=== PATIENT | female | born 1985 | race Caucasian/White ===

== ENCOUNTER 2020-11-29 19:52 | Emergency (ER) | payer OTHER, SELFPAY ==
[2020-11-29 20:41] VITALS: BP 117/62; PULSE 75; RESP 18; TEMP 36.4; O2SAT 99; BMI 43.0
[2020-11-29 22:00] VITALS: BP 117/62; PULSE 75; RESP 18; TEMP 36.4; O2SAT 99
[2020-11-29 22:17] LABS: MANUAL DIFF FLAG NO
[2020-11-29 22:19] LABS: Basophils Percent Auto 0.3 % (0-2); Eosinophils Absolute Auto 0.1 X10*3/uL (0.0-0.4); Eosinophils Percent Auto 1.5 % (0-4); Hemoglobin 10.4 g/dl (12.0-16.0); Imm Gran Abs Auto 0.04 X10*3/uL (0.00-0.03); Imm Gran Pct Auto 0.4 % (0.0-0.4); Lymphocytes Absolute Auto 3.3 X10*3/uL (1.2-4.9); Lymphocytes Percent Auto 37.5 % (20-40); Mean Corpuscular HGB Conc 31.5 g/dl (31.0-35.0); Mean Corpuscular Hemoglobin 27.3 pg (27.0-33.0); Mean Corpuscular Volume 86.6 fL (80-98); Mean Platelet Volume 10.3 fL (9.4-12.3); Monocytes Absolute Auto 0.3 X10*3/uL (0.1-1.2); Monocytes Percent Auto 3.5 % (2-11); Neutrophils Absolute Auto 5.1 X10*3/uL (2.0-8.3); Neutrophils Percent Auto 56.8 % (45-73); Platelet Count 224 X10*3/uL (160-400); Red Blood Count 3.81 X10*6/uL (4.20-5.50); Red Cell Distribution Width 13.6 % (11.0-16.0); White Blood Count 8.9 X10*3/uL (4.8-10.8)
[2020-11-29 22:35] LABS: Glucose Urine UA NEG (NEG); Leukocyte Esterase Urine NEG (NEG); Nitrite Urine NEG (NEG); Specific Gravity - Urine 1.025 (1.005-1.025); UACC Culture Trigger NO; Urine Blood 3+ (NEG); Urine Ketones 15 MG/DL (NEG); Urine Protein TRACE MG/DL (NEG-TRACE)
[2020-11-29 22:42] LABS: Alanine Aminotransferase 79 U/L (0-31); Albumin Level 3.8 g/dL (3.5-5.0); Alkaline Phosphatase 63 U/L (39-117); Anion Gap 13 (12-20); Appearance Urine CLEAR; Aspartate Amino Transferase 46 U/L (5-31); Bilirubin Total 0.4 mg/dL (0.0-1.0); Blood Urea Nitrogen 14 mg/dL (9-16); Calcium 8.5 mg/dL (8.4-10.2); Carbon Dioxide 25 mmol/L (22-29); Chloride 103 mmol/L (96-108); Color Urine YELLOW; Creatinine Clr Calc Pharmacy 106.1; Estimated Glomerular Filt Rate > 60; Glucose Random 178 mg/dL (60-115); Potassium 4.3 mmol/L (3.3-5.1); Sodium 137 mmol/L (135-145); Total Protein 6.7 g/dL (6.5-8.0)
[2020-11-29 22:57] LABS: RBC Urine 0-2 /HPF (0); Squamous Epithelial Cell Urine TRACE /LPF; WBC Urine 0-2 /HPF (0-4)
[2020-11-29 23:11] LABS: UPreg QC Valid YES; Urine Pregnancy NEGATIVE (NEGATIVE)
[2020-11-29 23:37] VITALS: BP 118/65; PULSE 77; RESP 18; TEMP 36.7; O2SAT 99
--- NOTE | 2020-11-30 00:21 | ED.GENADULT ---
HPI - General Adult General Chief complaint: Vaginal Bleeding Stated complaint: abd pain Time Seen by Provider: 11/29/20 21:10 Source: patient Mode of arrival: ambulatory Limitations: language barrier (Patient's 1st language is Sinhala, food and beverage outlets manager was used) History of Present Illness HPI narrative: 35-year-old female who presents emergency department for evaluation of abdominal pain and vaginal bleeding. The patient states that her menstrual periods are normally irregular. She states that over the past 3 months she has been spotting and bleeding every day. She states that her last menstrual periods was 1 month prior and she did not have any bleeding until 4 days prior to evaluation when she developed severe menstrual bleeding. She states that she has been soaking through a tampon and a pad every hour. Is also complaining of intermittent, severe, throbbing suprapubic abdominal pain. She states the pain got worse over the last 24 hours and is currently 10/10. She states she felt lightheaded and dizzy 2-3 times but had no a episodes of losing consciousness. She denied fever, chills, chest pain, shortness of breath the patient is a [id number] 1 twin . She states she has had 2 C sections in the past. She has also had a bilateral tubal ligation. Related Data Allergies Allergy/AdvReac Type Severity Reaction Status Date / Time No Known Allergies Allergy Verified 11/29/20 20:52 Review of Systems Review of Systems: Yes all other systems are reviewed and are negative [facility] Past Medical History [facility] Narrative: Past medical history: None. Surgical history: Patient has had a cholecystectomy, bilateral tubal ligation and C-sections x2. Social history: She denies tobacco use. She states she drinks alcohol only on occasions. She denies drug use. Medical History (Updated 11/29/20 @ 20:49 by Eliz Mcnair) No acute medical problems Surgical History (Updated 11/29/20 @ 20:49 by Eliz Mcnair) Tubal ligation status Social History Social History Alcohol intake: unknown Patient Tobacco Use Status: Tobacco use Unknown Use of substances other than those prescribed or required for medical reasons: Unknown Advance Directives: No Advance Directives Information Provided: Yes Patient : No Physical Exam Vital Signs: Vital Signs: Last Vital Signs Temp 98.1 F 11/29/20 23:37 Pulse 77 11/29/20 23:37 Resp 18 11/29/20 23:37 BP 118/65 11/29/20 23:37 Pulse Ox 99 11/29/20 23:37 Body Mass Index 43.0 Const: General: cooperative and no acute distress Nutritional Appearance: obese Orientation/consciousness: oriented to person and oriented to place Limitations: no limitations HENMT: Head: Yes normal to inspection, Yes normocephalic and Yes atraumatic Ears: external ears normal General nose exam: Normal external nose present Face and sinus: Yes normal facial exam Mouth: Normal oral and palatal mucosa present Throat: Yes posterior oropharynx normal Eyes: General: appearance normal, both eyes and all related structures Pupils: Equal, round and reactive pupils present Neck: Neck: Yes normal visual inspection, Yes no lymphadenopathy, Yes trachea midline and Yes supple Chest: Chest palpation & inspection: normal inspection of the chest and normal palpation of entire chest wall Resp: Effort & Inspection: normal respiratory effort and able to speak in complete sentences Auscultation: clear to auscultation bilaterally Cardio: Rate: regular rate Rhythm: regular rhythm Heart sounds: S1 normal heart sound present, S2 normal heart sound present and no murmurs GI: Inspection: Yes normal to inspection Palpation (GI): Soft to palpation, Tenderness to palpation present (GI) suprapubicly (Moderate) and no guarding Auscultation: normal bowel sounds : General: Yes no CVA tenderness Back/Spine/Pelvis: Back: no CVA tenderness Skin: General skin exam: no rashes or lesions noted Neuro: General: oriented to person and oriented to place Cranial nerves: Yes CN's II-XII intact bilaterally and Yes Equal, round and reactive pupils present Cognition (Neuro): normal cognition Motor exam (neuro): 5/5 motor strength present throughout Extrem: General: Yes normal to inspection Psych: Appearance: grossly normal Speech and movement: Normal speech and movement present Affect: normal affect Attitude: cooperative Thought process: Normal thought process present Thought content: Normal thought content present Course Course Course Narrative: 35-year-old female who presents emergency department for evaluation of suprapubic abdominal pain and menstrual bleeding x4 days. The patient's menstrual periods are usually irregular, her last normal menstrual period 1 month prior, prior lab she had spotting and bleeding daily for 3 months. Vital signs were normal. Physical examination did reveal suprapubic tenderness otherwise was unremarkable. Laboratory evaluation revealed a normal septic anemia with an H&H of 10.4 and 33.0. CMP revealed an elevated glucose of 178 and an elevated AST and ALT of 46 and 79. Urinalysis revealed 3+ blood, microscopic revealed 0-2 rbc's, 0 2 WBCs and no bacteria. The patient's presentation is consistent with menorrhagia, she was treated with Toradol 30 mg IV, morphine 4 mg IV and Zofran 4 mg IV. She also ordered to get normal saline x1 L. The patient will be treated with Provera 10 mg once a day for 10 days. She was advised to take Tylenol and ibuprofen for pain. She will be referred to our on-call greensman for her of the evaluation. Medical Decision Making Lab Data Result diagrams: 11/29/20 22:09 11/29/20 22:09 Labs: Lab Results 11/29/20 11/29/20 11/29/20 Range/Units 22:09 22:09 22:09 WBC 8.9 (4.8-10.8) X10*3/uL RBC 3.81 L (4.20-5.50) X10*6/uL Hgb 10.4 L (12.0-16.0) g/dl Hct 33.0 L (37-47) % MCV 86.6 (80-98) fL MCH 27.3 (27.0-33.0) pg MCHC 31.5 (31.0-35.0) g/dl RDW 13.6 (11.0-16.0) % Plt Count 224 (160-400) X10*3/uL MPV 10.3 (9.4-12.3) fL Immature Gran % (Auto) 0.4 (0.0-0.4) % Neut % (Auto) 56.8 (45-73) % Lymph % (Auto) 37.5 (20-40) % Crook % (Auto) 3.5 (2-11) % Eos % (Auto) 1.5 (0-4) % Baso % (Auto) 0.3 (0-2) % Lymph # (Auto) 3.3 (1.2-4.9) X10*3/uL Crook # (Auto) 0.3 (0.1-1.2) X10*3/uL Eos # (Auto) 0.1 (0.0-0.4) X10*3/uL Baso # (Auto) 0.0 (0.0-0.2) X10*3/uL Abs Immat Gran (auto) 0.04 H (0.00-0.03) X10*3/uL Absolute Neuts (auto) 5.1 (2.0-8.3) X10*3/uL Absolute Nucleated RBC 0.000 (0.0-0.012) X10*3/uL Nucleated RBC % (auto) 0.0 (0.0-0.2) /100WBC Sodium 137 (135-145) mmol/L Potassium 4.3 (3.3-5.1) mmol/L Chloride 103 (96-108) mmol/L Carbon Dioxide 25 (22-29) mmol/L Anion Gap 13 (12-20) BUN 14 (9-16) mg/dL Creatinine 0.80 (0.5-1.4) mg/dL Estim Creat Clear Calc 106.1 Estimated GFR > 60 Random Glucose 178 H (60-115) mg/dL Calcium 8.5 (8.4-10.2) mg/dL Total Bilirubin 0.4 (0.0-1.0) mg/dL AST 46 H (5-31) U/L ALT 79 H (0-31) U/L Alkaline Phosphatase 63 (39-117) U/L Total Protein 6.7 (6.5-8.0) g/dL Albumin 3.8 (3.5-5.0) g/dL Urine Color YELLOW Urine Appearance CLEAR Urine pH 6.0 (5.0-8.0) Ur Specific [place] 1.025 (1.005-1.025) Urine Protein TRACE (NEG-TRACE) MG/DL Urine Glucose (UA) NEG (NEG) MG/DL Urine Ketones 15 (NEG) MG/DL Urine Blood 3+ H (NEG) Urine Nitrite NEG (NEG) Ur Leukocyte Esterase NEG (NEG) Urine RBC 0-2 (0) /HPF Urine WBC 0-2 (0-4) /HPF Ur Squamous Epith Cells TRACE /LPF Urine Bacteria NONE /LPF Urine Test (NEGATIVE) 11/29/20 Range/Units 22:09 WBC (4.8-10.8) X10*3/uL RBC (4.20-5.50) X10*6/uL Hgb (12.0-16.0) g/dl Hct (37-47) % MCV (80-98) fL MCH (27.0-33.0) pg MCHC (31.0-35.0) g/dl RDW (11.0-16.0) % Plt Count (160-400) X10*3/uL MPV (9.4-12.3) fL Immature Gran % (Auto) (0.0-0.4) % Neut % (Auto) (45-73) % Lymph % (Auto) (20-40) % Crook % (Auto) (2-11) % Eos % (Auto) (0-4) % Baso % (Auto) (0-2) % Lymph # (Auto) (1.2-4.9) X10*3/uL Crook # (Auto) (0.1-1.2) X10*3/uL Eos # (Auto) (0.0-0.4) X10*3/uL Baso # (Auto) (0.0-0.2) X10*3/uL Abs Immat Gran (auto) (0.00-0.03) X10*3/uL Absolute Neuts (auto) (2.0-8.3) X10*3/uL Absolute Nucleated RBC (0.0-0.012) X10*3/uL Nucleated RBC % (auto) (0.0-0.2) /100WBC Sodium (135-145) mmol/L Potassium (3.3-5.1) mmol/L Chloride (96-108) mmol/L Carbon Dioxide (22-29) mmol/L Anion Gap (12-20) BUN (9-16) mg/dL Creatinine (0.5-1.4) mg/dL Estim Creat Clear Calc Estimated GFR Random Glucose (60-115) mg/dL Calcium (8.4-10.2) mg/dL Total Bilirubin (0.0-1.0) mg/dL AST (5-31) U/L ALT (0-31) U/L Alkaline Phosphatase (39-117) U/L Total Protein (6.5-8.0) g/dL Albumin (3.5-5.0) g/dL Urine Color Urine Appearance Urine pH (5.0-8.0) Ur Specific [place] (1.005-1.025) Urine Protein (NEG-TRACE) MG/DL Urine Glucose (UA) (NEG) MG/DL Urine Ketones (NEG) MG/DL Urine Blood (NEG) Urine Nitrite (NEG) Ur Leukocyte Esterase (NEG) Urine RBC (0) /HPF Urine WBC (0-4) /HPF Ur Squamous Epith Cells /LPF Urine Bacteria /LPF Urine Test NEGATIVE (NEGATIVE)
[2020-11-30 00:38] VITALS: RESP 15
[2020-11-30] MEDS: Morphine Sulfate 4 MG/ML CARTRIDGE IVPUSH ×2 (00:38→01:29)
[2020-11-30] MEDS: Ketorolac Tromethamine 15 MG/ML VIAL 30 MG IVPUSH (00:38)
[2020-11-30] MEDS: 0.9 % Sodium Chloride 1,000 ML 999 ML IV (00:39)
[2020-11-30 01:29] VITALS: RESP 15
[2020-12-04 23:16] LABS: Progesterone <0.1 ng/mL
== END 2020-11-30 02:15 | disposition home or self-care (01) ==
PROVIDERS: Student in an Organized Health Care Education/Training Program; Emergency Provider Emergency Medicine Emergency Medical Services
DX: N92.0 Excessive and frequent menstruation with regular cycle (principal); R10.9 Unspecified abdominal pain; R42 Dizziness and giddiness
CPT/HCPCS: 36415; 80053; 81001; 81025; 84144; 85025; 96365; 96375; 99285; J1885; J2270; J2405

== ENCOUNTER 2023-10-13 11:09 | Outpatient (REF) | payer MEDICAID, SELFPAY ==
[2023-10-13 13:33] LABS: Creatinine Urine 21.73 mg/dL
[2023-10-13 14:22] LABS: Alanine Aminotransferase 43 U/L (0-31); Albumin Level 4.2 g/dL (3.5-5.0); Alkaline Phosphatase 65 U/L (39-117); Anion Gap 14 (12-20); Aspartate Amino Transferase 17 U/L (5-31); Bilirubin Total 0.3 mg/dL (0.0-1.0); Blood Urea Nitrogen 10 mg/dL (9-16); Calcium 9.2 mg/dL (8.4-10.2); Carbon Dioxide 21 mmol/L (22-29); Chloride 103 mmol/L (96-108); Cholesterol 172 mg/dL (<200); Estimated Glomerular Filt Rate > 60; Glucose Random 200 mg/dL (60-115); HDL Cholesterol 41 mg/dL (>40); LDL Cholesterol Calculated 65 mg/dL (<100); Potassium 3.8 mmol/L (3.3-5.1); Sodium 134 mmol/L (135-145); Total Protein 7.8 g/dL (6.5-8.0); Triglycerides 331 mg/dL (<150)
== END 2023-10-13 11:10 | disposition home or self-care (01) ==
LOC: HO.HHCL 11:09
PROVIDERS: Visit Provider General Practice
DX: E11.65 Type 2 diabetes mellitus with hyperglycemia (principal); Z11.3 Encounter for screening for infections with a predominantly sexual mode of transmission
CPT/HCPCS: 36415; 80053; 80061; 82043; 82570

== ENCOUNTER 2025-02-12 14:30 | Outpatient (REF) | payer MEDICAID, SELFPAY ==
--- OUTSIDE RECORDS SUMMARY | 2025-02-12 16:00 | XMS_ITS | Encounter Summary ---
Author Organization [employer] Address [address] [place] [address] Care Team Providers Care Deli Cook Name Role Phone Dary Golden MD Primary Care Provider Encounter Details Date Type Department Care Team (Late st Contact Info) Description 02/12/2025 4:00 PM EDT Office Visit [facility] [address] [place] [address] Dary Golden MD [address] [place] [address] Class 2 severe obesity due to excess calories with serious comorbidity and body mass index (BMI) of 38.0 to 38.9 in adult (Primary Dx); Type 2 diabetes mellitus with hyperglycemia, without long-term current use of insulin (HCC); Recurrent major depressive disorder, in partial remission (CMS/HCC); Skin candidiasis Social History Tobacco Use Types Packs/Day Years Used Date Smoking Tobacco: Never Smokeless Tobacco: Never Alcohol Use Standard Drinks/Week Comments Not Currently 0 (1 standard drink = 0.6 oz pur e alcohol) Depression Answer Date Recorded Patient Health Questionnaire-9 Score 8 08/23/2024 Patient Health Questionnaire-9 Score 8 08/23/2024 Last PHQ-9: Questionnaire Data Not on file 0 08/23/2024 Housing Stability Answer Date Recorded What is your housing situation today? I have shady vazquez 10/03/[address] you li ve. Do you have problems with any of the following? None of the above 10/03/2023 Food Insecurity Answer Date Recorded Within the past 12 months, y ou worried that your food would run out before you got money to buy more: Never True 10/03/2023 Within the past 12 months,th e food you bought just didn't last and you didn't have enough money to get more: Never True 07/2023 Transportation Answer Date Recorded In the past 12 months, has l ack of transportation kept you from medical appts, meetings, work or from getting things needed for daily living? No 08/14/2024 Utilities Answer Date Recorded In the past 12 months, has t he electric, gas, oil or water company threatened to shut off services in your home? Yes 08/14/2024 Depression Answer Date Recorded Patient Health Questionnaire-2 Score 2 08/23/2024 Internet Access Answer Date Recorded Internet Access Q1 Yes 08/14/2024 Internet Access Q2 Not on file 08/14/2024 Comments Unknown Sex and Gender Information Value Date Recorded Sex Assigned at Female 02/28/2022 10:39 AM EDT Legal Sex Female 10:39 AM EDT Gender Identity Female 02/28/2022 10:39 AM EDT Sexual Orientation Straight 02/28/2022 10 :39 AM EDT documented as of this encounter Last Filed Vital Signs Vital Sign Reading Time Taken Comments Blood Pressure 92/60 02/12/2025 2:06 PM EDT Pulse 62 02/12/2025 2:06 PM EDT Temperature 36.4 C (97.5 F) 02/12/2025 2:06 PM EDT Respiratory Rate 20 02/12/2025 2:06 PM EDT Oxygen Saturation - - Inhaled Oxygen Concentration - - Weight 93.3 kg (205 lb 9.6 oz) 02/12/2025 2:06 P M EDT Height 154.9 cm (5' 1 ) 02/12/2025 2:06 PM EDT Body Mass Index 38.85 02/12/2025 2:06 PM EDT documented in this encounter Progress Notes * Dary Golden MD - 02/12/2025 4:00 PM EDT SUBJECTIVE: Yen Jordan is a 39 y.o. female who presents for chronic disease management. Denies recent illness, ER visit, or hospitalization. Acute Concerns: Her kids are growing up, she is happy losing weight, but also wants to treat the excess skin that she is developing. Enjoying singing in her [employer] group. Chronic Conditions and Plans: DM: taking Jardiance 25mg, and Trulicity 1.5mg weekly A1C 6.4 Glucose 248 mild microalbuminuria at 30, increased Jardiance to 25mg at last visit, will continue to monitor urine protein annually. Feet- normal Eye- no concerns Hyper TG at 330 On Simvastatin 20mg today Depression: Family issues and stressors Bilateral pelvic pain: wants to have her uterus removed OCP not helpful Advil is helpful Consider IUD, has BTL for contraception Ovarian cysts. Pain c/w these 2 diagnoses. Health Maintenance: Mammo- at age 42 Pap- 2-2021 STI screening- today Imms- due for PCV, COVID, Hep B, Flu. Declines Latest Reference Range & Units 10/13/23 11:11 Glucose 60 - 115 mg/dL 200 (H) Urea Nitrogen (BUN) 9 - 16 mg/dL 10 Creatinine, Serum 0.5 - 1.4 mg/dL 0.68 Sodium 135 - 145 mmol/L 134 (L) Potassium 3.3 - 5.1 mmol/L 3.8 Chloride 96 - 108 mmol/L 103 Carbon Dioxide 22 - 29 mmol/L 21 (L) Calcium 8.4 - 10.2 mg/dL 9.2 Albumin Level 3.5 - 5.0 g/dL 4.2 Bilirubin, Total 0.0 - 1.0 mg/dL 0.3 AST 5 - 31 U/L 17 ALT 0 - 31 U/L 43 (H) Anion Gap 12 - 20 14 Total Protein 6.5 - 8.0 g/dL 7.8 Cholesterol <200 mg/dL 172 HDL Cholesterol >40 mg/dL 41 LDL Cholesterol Calculated <100 mg/dL 65 Triglycerides <150 mg/dL 331 (H) Microalbumin Urine mg/L 30.0 Alkaline Phosphatase 39 - 117 U/L 65 Creatinine, Urine mg/dL 21.73 Estimated Glomerular Filt Rate >60 Microalbum Creatinine Ratio Ur <30 ug/mg cr 138.0 (H) Patient Active Problem List Diagnosis Date Noted Class 2 severe obesity due to excess calories with serious comorbidity and body mass index (BMI) of38.0 to 38.9 in adult 08/27/2024 Amenorrhea 09/20/2022 Elevated liver enzymes 08/15/2022 Abnormal uterine bleeding 06/19/2021 Anxiety 06/19/2021 Recurrent major depressive disorder, in partial remission (CMS/HCC) 06/19/2021 Type 2 diabetes mellitus (HCC) 06/19/2021 Surgical History[1] Social History Social History Narrative Not on file Review of Systems Constitutional: Negative. Respiratory: Negative. Cardiovascular: Negative. Gastrointestinal: Positive for nausea. Genitourinary: Negative. Musculoskeletal: Negative. OBJECTIVE: Vitals: 02/12/25 1406 BP: 92/60 BP Location: Left arm Patient Position: Sitting BP Cuff Size: Adult Pulse: 62 Resp: 20 Temp: 97.5 ??F (36.4 ??C) TempSrc: Oral Weight: 205 lb 9.6 oz (93.3 kg) Height: 5' 1 (1.549 m) Physical Exam Vitals and nursing note reviewed. Constitutional: Appearance: Normal appearance. HENT: Head: Normocephalic and atraumatic. Cardiovascular: Rate and Rhythm: Normal rate and regular rhythm. Pulses: Normal pulses. Heart sounds: Normal heart sounds. Pulmonary: Effort: Pulmonary effort is normal. Breath sounds: Normal breath sounds. Skin: General: Skin is warm and dry. Neurological: General: No focal deficit present. Mental Status: She is alert and oriented to person, place, and time. Psychiatric: Mood and Affect: Mood normal. Behavior: Behavior normal. ASSESSMENT/PLAN Problem List Items Addressed This Visit Recurrent major depressive disorder, in partial remission (CMS/HCC) Type 2 diabetes mellitus (HCC) Current Assessment & Plan Current A1c: 6.5 CONTINUE Jardiance 25mg daily, increase Trulicity to 3mg weekly BMP: normal Cr. Microalbumin: 30 Foot Exam: normal Eye Exam: needs referral Lipid panel: ASCVD: The ASCVD Risk score (Keira RODRIGUEZ, et al., 2019) failed to calculate for the following reasons: The 2019 ASCVD risk score is only valid for ages 40 to 79 Statin: Yes ASA: No SIVAKUMAR/ARB: No Encouraged regular aerobic exercise for improved glycemic control Encouraged daily foot checks Encouraged lean protein snacks and to avoid foods high in sugar and simple carbohydrates Treatment Goals: A1c goal: <7% FBG goal: <130 2 hour post prandial goal: <180 Relevant Medications Dulaglutide (Trulicity) 3 MG/0.5ML solution auto-injector Other Relevant Orders POCT Glucose (Completed) POCT Hgb A1c Lipid Panel, Standard Comprehensive Metabolic Panel Albumin, Random Urine W/Creatinine Class 2 severe obesity due to excess calories with serious comorbidity and body mass index (BMI) of38.0 to 38.9 in adult - Primary Relevant Medications Dulaglutide (Trulicity) 3 MG/0.5ML solution auto-injector Other Visit Diagnoses Skin candidiasis Relevant Medications Miconazole 2 % powder Follow Up: 6 months or sooner prn Allergies[2] Current Medications[3] Palauan Translation: Provided by [facility] staff member BRAIN Piedra [1] Past Surgical History: Procedure Laterality Date SECTION, UNSPECIFIED TUBAL LIGATION [2] No Known Allergies [3] Current Outpatient Medications: ibuprofen 800 MG tablet, , Disp: , Rfl: Alcohol Swabs ( Alcohol Prep) 70 % pads, Apply 1 Swab topically 2 times daily. Use when checking blood sugar twice a day, Disp: 100 each, Rfl: 3 Blood Glucose Monitoring Suppl (FreeStyle [place] Lite) w/Device kit, TEST BLOOD SUGAR TWICE DAILY,Disp: , Rfl: Dulaglutide (Trulicity) 3 MG/0.5ML solution auto-injector, Inject 3 mg under the skin 1 (one) time per week., Disp: 2 mL, Rfl: 2 glucose blood (FREESTYLE LITE) test strip, 1 each by Other route 3 times daily., Disp: 100 each, Rfl: 11 Jardiance 25 MG, TAKE 1 TABLET BY MOUTH EVERY DAY, Disp: 90 tablet, Rfl: 3 Miconazole 2 % powder, Apply 1 Application topically Once per day., Disp: 85 g, Rfl: 1 simvastatin (Zocor) 20 MG tablet, TAKE 1 TABLET BY MOUTH AT BEDTIME, Disp: 90 tablet, Rfl: 3 TRUEplus Lancets 33G misc, Apply 1 each topically 3 times daily., Disp: 100 each, Rfl: 3 documented in this encounter Miscellaneous Notes * Assessment & Plan Note - Dary Golden MD - 02/12/2025 3:16 PM EDTAssociated Problem(s): Type 2 diabetes mellitus (HCC) Current A1c: 6.5 CONTINUE Jardiance 25mg daily, increase Trulicity to 3mg weekly BMP: normal Cr. Microalbumin: 30 Foot Exam: normal Eye Exam: needs referral Lipid panel: ASCVD: The ASCVD Risk score (Keira RODRIGUEZ, et al., 2019) failed to calculate for the following reasons: The 2019 ASCVD risk score is only valid for ages 40 to 79 Statin: Yes ASA: No SIVAKUMAR/ARB: No Encouraged regular aerobic exercise for improved glycemic control Encouraged daily foot checks Encouraged lean protein snacks and to avoid foods high in sugar and simple carbohydrates Treatment Goals: A1c goal: <7% FBG goal: <130 2 hour post prandial goal: <180 documented in this encounter Plan of Treatment Not on file documented as of this encounter Procedures Procedure Name Priority Date/Time Associated Diagnosis Comments POCT GLYCATED HEMOGLOBIN, TOTAL Routine 02/12/2025 4:16 PM EDT Type 2 diabetes mellitus with hyperglycemia, without long-term current use of insulin (HCC) ALBUMIN, RANDOM URINE W/CREATININE Routine 02/12/2025 2:36 PM EDT Type 2 diabetes mellitus with hyperglycemia, without long-term current use of insulin (HCC) LIPID PANEL, STANDARD Routine 02/12/2025 2:36 PM EDT Type 2 diabetes mellitus with hyperglycemia, without long-term current use of insulin (HCC) COMPREHENSIVE METABOLIC PANEL Routine 02/12/2025 2:36 PM EDT Type 2 diabetes mellitus with hyperglycemia, without long-term current use of insulin (HCC) POCT GLUCOSE Routine 02/12/2025 2:09 PM EDT Type 2 diabetes mellitus with hyperglycemia, without long-term current use of insulin (HCC) documented in this encounter Results * (ABNORMAL) POCT Hgb A1c (02/12/2025 4:16 PM EDT) Hemoglobin A1C 6.4(A) 4.0 - 5.7 % QC Media Lot # [id number] Lot# Expiration Date 51 Blood 02/12/2025 4:16 PM EDT Dary Golden MD POINT OF CARE TEST ENTER/EDIT ORDERABLES Final Result * (ABNORMAL) Albumin, Random Urine W/Creatinine (02/12/2025 2:36 PM EDT) Creatinine, Urine 304.91 mg/dL [facility] Microalbumin Urine 96.0 mg/L [facility] Microalbum Creatinine Ratio Ur 31.4(H) <30 ug/mg cr [facility] Comment:Albumin/Creatinine R atio Reference Ranges: Normal: < 30 ug/mg creatinine Microalbuminuria: 30 - 300 ug/mg creatinineClinical Albuminuria: > 300 ug/mg creatinine Urine (Urine, Random) 02/12/2025 2:36 PM EDT 02/12/2025 3:55 PM EDT Dary Golden MD LAB URINE ORDERABLES Final Res ult [facility] [address] [place] [phone] * (ABNORMAL) Comprehensive Metabolic Panel (02/12/2025 2:36 PM EDT) Sodium 139 135 - 145 mmol/L [facility] Potassium 4.1 3.3 - 5.1 mmol/L [facility] Chloride 106 96 - 108 mmol/L [facility] Carbon Dioxide 27 22 - 29 mmol/L [facility] Anion Gap 10(L) 12 - 20 [facility] Urea Nitrogen (BUN) 14 9 - 16 mg/dL [facility] Creatinine, Serum 0.59 0.5 - 1.4 mg/dL [facility] Estimated Glomerular Filt Rate >60 [facility] Comment:Chronic Kidney Disea se: Estimated GFR < 60 mL/min/1.19x3Vlaokr Kidney Disease: Estimated GFR < 15 mL/min/1.73m2 Glucose 135(H) 60 - 115 mg/dL [facility] Calcium 9.1 8.4 - 10.2 mg/dL [facility] Bilirubin, Total 0.6 0.0 - 1.0 mg/dL [facility] Aspartate Amino Transferase 16 5 - 31 U/L [facility] Alanine Aminotransferase 23 0 - 31 U/L [facility] Total Protein 7.4 6.5 - 8.0 g/dL [facility] Albumin Level 4.3 3.5 - 5.0 g/dL [facility] Alkaline Phosphatase 51 39 - 117 U/L [facility] Blood Venous blood specimen / Unknown 02/12/2025 2:36 PM EDT 02/12/2025 4:05 PM EDT us Dary Golden MD LAB BLOOD ORDERABLES Final Res ult [facility] [address] [place] [phone] * (ABNORMAL) Lipid Panel, Standard (02/12/2025 2:36 PM EDT) Triglycerides 187(H) <150 mg/dL [facility] Comment:Desirable Triglyceri de: less than 150 mg/dLBorderline High Triglyceride 150-199 mg/dLHigh Triglyceride: 200-499 mg/dLVery High Triglyceride: greater than or equal to 5OO mg/dL Cholesterol 129 <200 mg/dL [facility] Comment:Desirable Cholestero l: less than 200 mg/dLBorderline High Cholesterol: 200-239 mg/dLHigh Cholesterol: greater than 239 mg/dL LDL Cholesterol Calculated 54 <100 mg/dL [facility] Comment:Desirable LDL: less than 100 mg/dLNear Optimal/Above Optimal LDL: 110- 129 mg/dLBorderline High LDL: 130-159 mg/dLHigh LDL: 160-189 mg/dLVery High LDL: greater than or equal to 190 mg/dL HDL Cholesterol 38(L) >40 mg/dL [facility] Comment:Desirable HDL: great er than 40 mg/dL Note: This HDL assay may give artificially low results in patients with liver disease. Blood Venous blood specimen / Unknown 02/12/2025 2:36 PM EDT 02/12/2025 4:05 PM EDT Dary Golden MD LAB BLOOD ORDERABLES Final Res ult [facility] [address] [place] [phone] * POCT Glucose (02/12/2025 2:09 PM EDT) Glucose Blood, POC 158 60 - 200 mg/dL QC Media Lot # [id number] Lot# Expiration Date Blood Capillary blood specimen / Unknown 02/12/2025 2:09 PM EDT Dary Golden MD POINT OF CARE TEST ENTER/EDIT ORDERABLES Final Result documented in this encounter Visit Diagnoses Diagnosis Class 2 severe obesity due to excess calories with serious comorbidity and body mass index (BMI) of 38.0 to 38.9 in adult- Primary Type 2 diabetes mellitus with hyperglycemia, without long-term current use of insulin ([facility]) Recurrent major depressive disorder, in partial remission ([facility]/HCC) Skin candidiasis Candidiasis of skin and nails documented in this encounter Additional Health Concerns Assessment Noted Time PHQ-9 Depression Total Score: 8 08/24/19 25 4:17 PM EDT documented as of this encounter Care Teams Deli Cook Relationship Specialty Start Date End Date Dary Golden MD [address] [place] [phone] PCP - General Family Medicine 02/07/23 documented as of this encounter
[2025-02-12 16:40] LABS: Alanine Aminotransferase 23 U/L (0-31); Albumin Level 4.3 g/dL (3.5-5.0); Alkaline Phosphatase 51 U/L (39-117); Anion Gap 10 (12-20); Blood Urea Nitrogen 14 mg/dL (9-16); Calcium 9.1 mg/dL (8.4-10.2); Carbon Dioxide 27 mmol/L (22-29); Chloride 106 mmol/L (96-108); Cholesterol 129 mg/dL (<200); Estimated Glomerular Filt Rate > 60; HDL Cholesterol 38 mg/dL (>40); Potassium 4.1 mmol/L (3.3-5.1); Sodium 139 mmol/L (135-145); Total Protein 7.4 g/dL (6.5-8.0); Triglycerides 187 mg/dL (<150)
[2025-02-12 17:19] LABS: Aspartate Amino Transferase 16 U/L (5-31)
[2025-02-12 17:30] LABS: Microalbum/Creatinine Ratio Ur 31.4 ug/mg cr (<30)
--- OUTSIDE RECORDS SUMMARY | 2025-02-12 18:13 | XMS_ITS | Encounter Summary ---
Author Organization [employer] Address [address] [facility] 7 [place] [address] Care Team Providers Care Fruit Pitter Name Role Phone Dary Golden MD Primary Care Provider [phone] Reason for Referral * Imaging (Routine) - Closed Specialty Diagnoses / Procedures Referred By Michelle aviles Referred To Contact Radiology Diagnoses Abnormal uterine bleeding Procedures US Pelvis Transvaginal Dary Golden MD [address] [place] [phone] Phone: tel: fax: [address] Phone: tel: fax: Referral ID Status Reason Start Date Expiration Date Visits Re quested Visits Authorized [id number] Closed 09/12/2024 09/12/2025 1 1 Encounter Details Date Type Department Care Team (Late st Contact Info) Description 09/12/2024 Orders Only [facility] MED[facility]INE [address] [place] [address] [phone] Dary Golden MD [address] [place] [phone] Abnormal uterine bleeding (Primary Dx) Social History Tobacco Use Types Packs/Day Years [...] AM EDT documented as of this encounter Plan of Treatment Scheduled Orders Name Type Priority Associated Diagnoses Orde r Schedule US Pelvis Transvaginal Imaging Routine Abnormal uterine bleeding Expected: 09/12/2024, Expires: 09/12/2025 documented as of this encounter Visit Diagnoses Diagnosis Abnormal uterine bleeding- Primary Unspecified disorder of menstruation and other abnormal bleeding from female genital tract documented in this encounter Additional Health Concerns Assessment Noted Time PHQ-9 Depression Total Score: 8 08/24/19 25 4:17 PM EDT documented as of this encounter Care Teams Fruit Pitter Relationship Specialty Start Date End Date Dary Golden MD [address] [place] [phone] PCP - General Family Medicine 02/07/23 documented as of this encounter
--- OUTSIDE RECORDS SUMMARY | 2025-02-12 18:13 | XMS_ITS | Encounter Summary ---
Author Organization [employer] Address [address] [facility] [address] [place] [address] Care Team Providers Care Waitstaff Captain Name Role Phone Dary Golden MD Primary Care Provider [phone] Encounter Details Date Type Department Care Team ([facility] st Contact Info) Description 10/30/2024 Telephone [facility] MEDICINE [address] [place] [address] Dary Golden MD [address] [place] [address] Social History Tobacco Use Types Packs/Day Years [...] as of this encounter Plan of Treatment Not on file documented as of this encounter Visit Diagnoses Not on filedocumented in this encounter Additional Health Concerns Assessment Noted Time PHQ-9 Depression Total Score: 8 08/24/19 25 4:17 PM EDT documented as of this encounter Care Teams Waitstaff Captain Relationship Specialty Start Date End Date Dary Golden MD [address] [place] [phone] PCP - General Family Medicine 02/07/23 documented as of this encounter
--- OUTSIDE RECORDS SUMMARY | 2025-02-12 18:13 | XMS_ITS | Encounter Summary ---
Author Organization [employer] Address [address] [facility] 7 [place] [address] Care Team Providers Care Access Director Name Role Phone Dary Golden MD Primary Care Provider [phone] Reason for Visit * Reason Onset Date Comments Appointment Request 01/28/2025 Encounter Details Date Type Department Care Team ([facility] st Contact Info) Description 01/28/2025 Telephone [facility] MEDICINE [address] [place], [place] [phone] Dary Golden MD [address] [place] [address] Appointment Request Social History Tobacco Use Types Packs/Day Years [...] AM EDT documented as of this encounter Miscellaneous Notes * Telephone Encounter - Toñito Andres - 01/28/2025 10:09 AM EDT Tc from pt requesting to schedule apt to discuss surgery as pt lost 30 pounds that were needed to be lost Contact pt at [phone] (comoran) documented in this encounter Plan of Treatment Not on file documented as of this encounter Visit Diagnoses Not on filedocumented in this encounter Additional Health Concerns Assessment Noted Time PHQ-9 Depression Total Score: 8 08/24/19 25 4:17 PM EDT documented as of this encounter Care Teams Access Director Relationship Specialty Start Date End Date Dary Golden MD [address] [place] [phone] PCP - General Family Medicine 02/07/23 documented as of this encounter
--- OUTSIDE RECORDS SUMMARY | 2025-02-12 18:13 | XMS_ITS | Encounter Summary ---
Author Organization [employer] Address [address] [address] [place] [address] Care Team Providers Care Canvas Repairer Name Role Phone Dary Golden MD Primary Care Provider [phone] Reason for Visit * Reason Comments Med Refill Encounter Details Date Type Department Care Team ([facility] st Contact Info) Description 02/10/2025 Refill [facility] MEDICINE [address] [place], [place] [phone] Dary Golden MD [address] [place], [place] [phone] Social History Tobacco Use Types Packs/Day Years [...] documented as of this encounter Care Teams Canvas Repairer Relationship Specialty Start Date End Date Dary Golden MD [address] [place] [address] PCP - General Family Medicine 02/07/23 documented as of this encounter
--- OUTSIDE RECORDS SUMMARY | 2025-02-12 18:13 | XMS_ITS | Encounter Summary ---
Author Organization [employer] Address [address] [facility] [address] [place] [address] Care Team Providers Care Solder Technician Name Role Phone Dary Golden MD Primary Care Provider [phone] Encounter Details Date Type Department Care Team (Latest Contact Info) Description 02/12/2025 Travel Social History Tobacco Use Types Packs/Day Years [...] documented as of this encounter Care Teams Solder Technician Relationship Specialty Start Date End Date Dary Golden MD [address] [place] [address] PCP - General Family Medicine 02/07/23 documented as of this encounter
--- OUTSIDE RECORDS SUMMARY | 2025-02-12 18:13 | XMS_ITS | Clinical Summary ---
Author Organization [employer] Address [address] [facility] [address] [place] [address] Care Team Providers Care Railroad Purchasing Agent Name Role Phone Dary Golden MD Primary Care Provider [phone] Allergies No known active allergies Medications Blood Glucose Monitoring Suppl (FreeStyle Perham Lite) w/Device kit TEST BLOOD SUGAR TWICE DAILY 06/18/19 22 Active TRUEplus Lancets 33G miscIndication s:Type 2 diabetes mellitus with hyperglycemia, without long-term current use of insulin ([facility]) Apply 1 each topically 3 times daily. 100 each 3 08/06/19 23 Active Alcohol Swabs (SM Alcohol Prep) 70 % padsIndication s:Type 2 diabetes mellitus with hyperglycemia, without long-term current use of insulin ([facility]) Apply 1 Swab topically 2 times daily. Use when checking blood sugar twice a day 100 each 3 08/06/19 23 Active glucose blood (FREESTYLE LITE) test stripIndicatio ns:Type 2 diabetes mellitus with hyperglycemia, without long-term current use of insulin ([facility]) 1 each by Other route 3 times daily. 100 each 11 08/11/19 24 Active Jardiance 25 MG TAKE 1 TABLET BY MOUTH EVERY DAY 90 tablet 3 10/31/19 25 Active simvastatin (Zocor) 20 MG tablet TAKE 1 TABLET BY MOUTH AT BEDTIME 90 tablet 3 02/12/20 25 Active ibuprofen 800 MG tablet 12/07/19 25 Active Dulaglutide (Trulicity) 3 MG/0.5ML solution auto-injectorI ndications:Typ e 2 diabetes mellitus with hyperglycemia, without long-term current use of insulin (HCC) Inject 3 mg under the skin 1 (one) time per week. 2 mL 2 02/13/20 25 Active Miconazole 2 % powderIndicati ons:Skin candidiasis Apply 1 Application topically Once per day. 85 g 1 02/13/20 Active omeprazole (PriLOSEC) [address] capsuleIndicat ions:Generaliz ed abdominal pain TAKE 1 CAPSULE BY MOUTH EVERY DAY BEFORE A MEAL. DO NOT CRUSH OR CHEW. 90 capsule 05/17/19 24 025 Discontinued(T herapy completed) metFORMIN XR (Glucophage-XR ) 500 MG 24 hr tabletIndicati ons:Type 2 diabetes mellitus with hyperglycemia, without long-term current use of insulin (HCC) take 1 tablet by oral route each morning 2 tabs each evening 270 tablet 3 10/13/19 24 Discontinued(T herapy completed) fluticasone (Flonase) 50 MCG/ACT nasal spray SHAKE LIQUID AND USE 1 SPRAY IN EACH NOSTRIL ONCE A DAY IN THE MORNING 10/14/19 24 Discontinued(T herapy completed) simvastatin (Zocor) 20 MG tablet Take 1 tablet (20 mg) by mouth at bedtime. For lowering fatty particles in the blood 90 tablet 3 03/15/20 24 025 Discontinued Jennifer 0.25-35 MG-MCG tablet Take 1 tablet by mouth Once per day. 08/01/19 025 Discontinued(T herapy completed) Dulaglutide (Trulicity) 1.5 MG/0.5ML solution auto-injector Inject 1.5 mg under the skin 1 (one) time per week. 2 mL 3 08/24/19 25 025 Discontinued(R eorder (will not trigger notification to Pharmacy)) Dulaglutide (Trulicity) 1.5 MG/0.5ML solution auto-injector Inject 1.5 mg under the skin 1 (one) time per week. 2 mL 3 02/11/20 25 Discontinued(D ose adjustment) Active Problems Problem Noted Date Diagnosed Date Class 2 severe obesity due t o excess calories with serious comorbidity and body mass index (BMI) of 38.0 to 38.9 in adult 08/27/2024 Assessment & Plan (08/27/2024 8:39 AM EDT): Continue lifestyle changes, eating healthfully and exercise when possible Amenorrhea 09/20/2022 Assessment & Plan (09/20/2022 8:12 PM EDT): Neg test today + low risk of due to BTL FU w PCP, unclear if related to meds (sertraline ) vs DM? Elevated liver enzymes 08/15/2022 Abnormal uterine bleeding 06/19/2021 Assessment & Plan (10/13/2023 12:34 PM EDT): With pelvic pain around menses Recommend trial of OCPs for menstrual pain and irregularity Anxiety 06/19/2021 Recurrent major depressive disorder, in partial remission 06/19/2021 Assessment & Plan (10/13/2023 12:32 PM EDT): Declines meds or therapy Type 2 diabetes mellitus 06/19/2021 Assessment & Plan (02/12/2025 3:16 PM EDT): Current A1c: 6.5 CONTINUE Jardiance 25mg daily, [...] <130 2 hour post prandial goal: <180 Assessment & Plan (08/27/2024 8:39 AM EDT): Current A1c: 6.5 CONTINUE Metformin and Jardiance 25mg daily, increase Trulicity to 1.5mg weekly BMP: normal Cr. Microalbumin: 30 Foot [...] <130 2 hour post prandial goal: <180 Assessment & Plan (03/15/2024 2:24 PM EST): Current A1c: 8.4, CONTINUE Metformin and Jardiance 25mg daily, add Trulicity 0.75mg weekly BMP: normal Cr. Microalbumin: 30 Foot Exam: normal Eye Exam: Discuss at follow up Lipid panel: ASCVD: Statin: Yes ASA: No SIVAKUMAR/ARB: No Encouraged regular aerobic exercise for improved glycemic control Encouraged daily foot checks Encouraged lean protein snacks and to avoid foods high in sugar and simple carbohydrates Treatment Goals: A1c goal: <7% FBG goal: <130 2 hour post prandial goal: <180 Assessment & Plan (10/13/2023 12:33 PM EDT): Current A1c: 8.4, increase Jardiance to 25mg daily BMP: today Microalbumin: today Foot Exam: Complete at follow up Eye Exam: Discuss at follow up Lipid panel: ASCVD: Calculate pending updated labs Statin: Yes ASA: No SIVAKUMAR/ARB: No Encouraged regular aerobic exercise for improved glycemic control Encouraged daily foot checks Encouraged lean protein snacks and to avoid foods high in sugar and simple carbohydrates Treatment Goals: A1c goal: <7% FBG goal: <130 2 hour post prandial goal: <180 Resolved Problems Problem Noted Date Diagnosed Date Resolved Date Sore throat due to virus 09/20/2022 COVID 09/20/2022 03/15/2024 Assessment & Plan (09/20/2022 8:11 PM EDT): It seems to be improving within the past 24h. She has booster. No rx at this time unless she develops fever, worsenign of cough, CP , body aches or SOB, call immediately within the next 3d for antivirals. Self-care measures: Rest (sleep at least 8 hours a night). Hydrate with plenty of water (avoid caffeine and alcohol). Use saline nose drops to loosen mucus Take Acetaminophen (Tylenol )or Ibuprofen as needed to reduce fever or discomfort Gargle with salt water and use throat sprays/lozenges for throat pain. Flonase prn Use heated, humidified air. If you do not have a humidifier, take hot showers. Limit spread to others: Wash hands frequently. Cover coughs and sneezes using the crook of your elbow. 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) Encounters Date Type Department Care Team Description 02/12/2025 4:00 PM EDT Office Visit [facility] [address] [place] [address] Dary Golden MD Class 2 severe obesity due to excess calories with serious comorbidity and body mass index (BMI) of 38.0 to 38.9 in adult (Primary Dx); Type 2 diabetes mellitus with hyperglycemia, without long-term current use of insulin (HCC); Recurrent major depressive disorder, in partial remission (CMS/HCC); Skin candidiasis 02/12/2025 Travel 02/11/2025 Travel 02/10/2025 Refill [facility] [address] [place] [address] Dary Golden MD 02/10/2025 Refill [facility] [address] [place], [place] [phone] Dary Golden MD 01/28/2025 Telephone [facility] [address] [place] [address] Dary Golden MD Appointment Request 12/03/2024 10:00 AM EDT Office Visit [facility] [address] [place] [address] Osmany, Vanessa, OD Diabetes type 2, no ocular involvement ([facility]/HCC) (Primary Dx) 12/03/2024 Travel from Last 3 Months Immunizations Immunization Administration Dates Next Due Influenza injectable quadrivalent preservative f ree 02/15/2017 Tdap 09/01/2021 Family History Medical History Relation Name Comments Diabetes Maternal Grandfather Bone cancer Maternal Grandmother Diabetes Mother Hypertension Mother Thyroid disease Sister Relation Name Status Comments Maternal Grandfather Maternal Grandmother Mother Sister Social History Tobacco Use Types Packs/Day Years Used Date Smoking Tobacco: Never Smokeless Tobacco: Never Tobacco Cessation:Counseling Given: Not Answered Alcohol Use Standard Drinks/Week Comments Not Currently [...] Q2 Not on file 08/14/2024 Comments Unknown Intention Date Recorded No desire to become (finding) 0 08/23/2024 Sex and Gender Information Value Date Recorded Sex Assigned at Female 02/28/2022 10:39 AM EDT Legal Sex Female 10:39 AM EDT Gender Identity Female 02/28/2022 10:39 AM EDT Sexual Orientation Straight 02/28/2022 10 :39 AM EDT Last Filed Vital Signs Vital Sign Reading Time Taken Comments Blood Pressure 92/60 02/12/2025 2:06 PM EDT Pulse 62 02/12/2025 2:06 PM EDT Temperature 36.4 C (97.5 F) 02/12/2025 2:06 PM EDT Respiratory Rate 20 02/12/2025 2:06 PM EDT Oxygen Saturation 97% 09/20/2022 7:28 PM EDT Inhaled Oxygen Concentration - - Weight 93.3 kg (205 lb 9.6 oz) 02/12/2025 2:06 P M EDT Height 154.9 cm (5' 1 ) 02/12/2025 2:06 PM EDT Body Mass Index 38.85 02/12/2025 2:06 PM EDT Plan of Treatment Health Maintenance Due Date Last Done Comments Eye Exam 1997 Alcohol/Substance Use Screening 1999 HPV Vaccines (1 - 3-dose series) 2002 Hepatitis B Vaccines (1 of 3 - 19+ 3-dose series) 2006 Pneumococcal Vaccine: Pediatrics (0 to 5 Years) and At-Risk Patients (6 to 49) Years (1 of 2 - PCV) 2006 Diabetes: Urine Protein Screening 10/12/2024 02/12/2025, 10/13/2023, 07/28/2021 COVID-19 Vaccine ( season) 2024 06/07/2021, 09/24/2020, 08/27/2020 Influenza Vaccine (#1) 2024 02/15/2017 Diabetes: Foot Exam 03/15/2025 03/15/2024, 03/15/2024, 03/15/2024, Additional history exists Diabetes: Hemoglobin A1C 08/13/2025 025, 08/23/2024, 03/15/2024, Additional history exists SDOH Screening 08/14/2025 08/14/2024 Depression Screening 08/23/2025 08/23/2024, 08/24/19 Family Planning (PISQ) 08/27/2025 08/27/2024 Disability Screening 02/11/2026 02/11/2025 Lipid Panel 02/12/2026 02/12/2025, 09/29, 08/05/2022, Additional history exists Tobacco Screening 02/12/2026 02/12/2025 Cervical Cancer Screening 06/07/2026 HPV/Cotest 06/07/2026 06/07/2021 Pap Smear 06/07/2026 06/07/2021, 06/07/2021 DTaP/Tdap/Td Vaccines (2 - Td or Tdap) 09/02/2031 09/01/2021 Zoster Vaccines (1 of 2) 2037 RSV Patients and Patients Aged 60 years or older (1 - 1-dose 75+ series) 2062 HIV Screening Completed 06/02/2021 Hepatitis C Screening Completed 06/02/2021 HIB Vaccines Aged Out No longer eligi ble based on patient's age to complete this topic Hepatitis A Vaccines Aged Out No long er eligible based on patient's age to complete this topic IPV Vaccines Aged Out No longer eligi ble based on patient's age to complete this topic Meningococcal B Vaccine Aged Out No l onger eligible based on patient's age to complete this topic Meningococcal Vaccine Aged Out No kendra nataliia eligible based on patient's age to complete this topic RSV under 20 months Aged Out No longe r eligible based on patient's age to complete this topic Rotavirus Vaccines Aged Out No longer eligible based on patient's age to complete this topic Procedures Procedure Name Priority Date/Time Associated Diagnosis Comments POCT GLYCATED HEMOGLOBIN, TOTAL Routine 02/12/2025 4:16 PM EDT Type 2 diabetes mellitus with hyperglycemia, without long-term current use of insulin ([facility]) ALBUMIN, RANDOM URINE W/CREATININE Routine 02/12/2025 2:36 PM EDT Type 2 diabetes mellitus with hyperglycemia, without long-term current use of insulin ([facility]) COMPREHENSIVE METABOLIC PANEL Routine 02/12/2025 2:36 PM EDT Type 2 diabetes mellitus with hyperglycemia, without long-term current use of insulin ([facility]) LIPID PANEL, STANDARD Routine 02/12/2025 2:36 PM EDT Type 2 diabetes mellitus with hyperglycemia, without long-term current use of insulin ([facility]) POCT GLUCOSE Routine 02/12/2025 2:09 PM EDT Type 2 diabetes mellitus with hyperglycemia, without long-term current use of insulin ([facility]) FUNDUS PHOTOS - OU - BOTH EYES Routine 12/03/2024 10:00 AM EDT Diabetes type 2, no ocular involvement (CMS/HCC) THINPREP IMAGING PAP AND HPV MRNA E6/E7 WITH REFLEX TO HPV 16,18/45 Routine 06/07/2021 12:13 PM EST PAP SMEAR Routine 06/07/2021 12:00 AM EST ZZZ HISTORICAL HEPATITIS C AB W/REFL TO HCV RNA, QN, PCR Routine 06/02/2021 5:16 PM EST HIV 1/2 ANTIGEN/ANTIBODY, FOURTH GENERATION W/RFL Routine 06/02/2021 5:16 PM EST from Last 3 Months or Most Recently Relevant to Health Maintenance Results * (ABNORMAL) POCT Hgb A1c (02/12/2025 4:16 PM EDT) Hemoglobin A1C 6.4(A) 4.0 - 5.7 % QC Media Lot # [id number] Lot# Expiration Date Blood 02/12/2025 4:16 PM EDT us Dary Golden MD POINT OF CARE TEST ENTER/EDIT ORDERABLES Final Result * (ABNORMAL) Albumin, Random Urine W/Creatinine (02/12/2025 2:36 PM EDT) Creatinine, Urine 304.91 mg/dL [facility] Microalbumin Urine 96.0 mg/L [facility] Microalbum Creatinine Ratio Ur 31.4(H) <30 ug/mg cr [facility] Comment:Albumin/Creatinine R atio Reference Ranges: Normal: < 30 ug/mg creatinine Microalbuminuria: 30 - 300 ug/mg creatinineClinical Albuminuria: > 300 ug/mg creatinine Urine (Urine, Random) 02/12/2025 2:36 PM EDT 02/12/2025 3:55 PM EDT us Dary Golden MD LAB URINE ORDERABLES Final Res ult [facility] [address] [place] [phone] * (ABNORMAL) Lipid Panel, Standard (02/12/2025 2:36 PM EDT) Triglycerides 187(H) <150 mg/dL [facility] Comment:Desirable Triglyceri de: less than 150 mg/dLBorderline High Triglyceride 150-199 mg/dLHigh Triglyceride: 200-499 mg/dLVery High Triglyceride: greater than or equal to 5OO mg/dL Cholesterol 129 <200 mg/dL [facility] Comment:Desirable Cholestero l: less than 200 mg/dLBorderline High Cholesterol: 200-239 mg/dLHigh Cholesterol: greater than 239 mg/dL LDL Cholesterol Calculated 54 <100 mg/dL [facility] Comment:Desirable LDL: less than 100 mg/dLNear Optimal/Above Optimal LDL: 110- 129 mg/dLBorderline High LDL: 130-159 mg/dLHigh LDL: 160-189 mg/dLVery High LDL: greater than or equal to 190 mg/dL HDL Cholesterol 38(L) >40 mg/dL [facility] Comment:Desirable HDL: great er than 40 mg/dL Note: This HDL assay may give artificially low results in patients with liver disease. Blood Venous blood specimen / Unknown 02/12/2025 2:36 PM EDT 02/12/2025 4:05 PM EDT us Dary Golden MD LAB BLOOD ORDERABLES Final Res ult [facility] [address] [place] [phone] * (ABNORMAL) Comprehensive Metabolic Panel (02/12/2025 2:36 PM EDT) Sodium 139 135 - 145 mmol/L [facility] Potassium 4.1 3.3 - 5.1 mmol/L [facility] Chloride 106 96 - 108 mmol/L [facility] Carbon Dioxide 27 22 - 29 mmol/L [facility] Anion Gap 10(L) 12 - 20 [facility] Urea Nitrogen (BUN) 14 9 - 16 mg/dL [facility] Creatinine, Serum 0.59 0.5 - 1.4 mg/dL [facility] Estimated Glomerular Filt Rate >60 [facility] Comment:Chronic Kidney Disea se: Estimated GFR < 60 mL/min/1.83f3Adcnhn Kidney Disease: Estimated GFR < 15 mL/min/1.73m2 Glucose 135(H) 60 - 115 mg/dL [facility] Calcium 9.1 8.4 - 10.2 mg/dL [facility] Bilirubin, Total 0.6 0.0 - 1.0 mg/dL [facility] Aspartate Amino Transferase 16 5 - 31 U/L [facility] Alanine Aminotransferase 23 0 - 31 U/L [facility] Total Protein 7.4 6.5 - 8.0 g/dL [facility] Albumin Level 4.3 3.5 - 5.0 g/dL [facility] Alkaline Phosphatase 51 39 - 117 U/L [facility] Blood Venous blood specimen / Unknown 02/12/2025 2:36 PM EDT 02/12/2025 4:05 PM EDT Dary Golden MD LAB BLOOD ORDERABLES Final Res ult [facility] [address] [place] [phone] * POCT Glucose (02/12/2025 2:09 PM EDT) Glucose Blood, POC 158 60 - 200 mg/dL QC Media Lot # [id number] Lot# Expiration Date Blood Capillary blood specimen / Unknown 02/12/2025 2:09 PM EDT us Dary Golden MD POINT OF CARE TEST ENTER/EDIT ORDERABLES Final Result * Fundus Photos - OU - Both Eyes (12/03/2024 10:00 AM EDT) Narrative Osmany, Vanessa, OD - 12/26/2024 2:40 PM EDT Images from the original result were not included. Right Eye Progression has no prior data. Disc findings include normal observations (Cup-to-disc ratio 0.25/0.25, no NVD). Macula findings include normal observations (No CSME). Vessel findings include normal observations. Periphery findings include normal observations (No NVE). Left Eye Progression has no prior data. Disc findings include normal observations (Cup-to-disc ratio 0.15/0.15, no NVD). Macula findings include normal observations (No CSME). Vessel findings include normal observations. Periphery findings include normal observations (No NVE). Notes Assessment and Plan: No diabetic retinopathy (DR) noted to the extent seen in the photos. Will monitor with a dilated eye exam in 1 year. Vanessa Ceron OD OPHTH PHOTOGRAPHY Final Resul t * THINPREP TIS PAP AND HPV mRNA E6/E7 WITH REFLEX TO HPV 16,18/45 (06/07/2021 12:13 PM EST) Clinical Information: None given [facility] COMMENT SEE COMMENT [facility] Comment: EXPLANATORY NOTE: The Pap is a screening test for cervical cancer. It is not a diagnostic test and is subject to false negative and false positive results. It is most reliable when a satisfactory sample, regularly obtained, is submitted with relevant clinical findings and history, and when the Pap result is evaluated along with historic and current clinical information. COMMENT: SEE COMMENT [facility] Comment: This case could not be evaluated with computer assisted technology. The slide was manually screened according to routine procedures. Bobbin Cleaning Machine Operator: SEE COMMENT [facility] Comment: [place], [place](ASCP) CT screening location: [place] [address] HPV nRNA E6/E7 Not Detected Not Detected [facility] Comment: Methodology: Locomotive Driver-Mediated Amplification This assay detects E6/E7 viral messenger RNA (mRNA) from 14 high-risk HPV types (16,18,31,33,35,39,45,51,52,56,58,59,66,68). The analytical performance characteristics of this assay have been determined by [employer]. The modifications have not been cleared or approved by the FDA. This assay has been validated pursuant to the CLIA regulations and is used for clinical purposes. For additional information, please refer to http://[employer]/faq/TIK080q7 (This link if provided for information/ educational purposes only.) Interpretation/Re sult: Negative for intraepithelial lesion or malignancy. [facility] LMP: 06/05/21 [facility] Prev. BX: NONE GIVEN [facility] Prev. PAP: NONE GIVEN [facility] Review Bobbin Cleaning Machine Operator: SEE COMMENT [facility] Comment: [place], [place](ASCP) CT screening location: [place] [address] SOURCE: None given [facility] Statement Of Adequacy: SEE COMMENT [facility] Comment: Satisfactory for evaluation. Endocervical/transformation zone component absent. 06/07/2021 12:1 3 PM EST Ester Muñoz [facility] LAB PATHOLOGY ORDERABLES Final Result Performing Organization Address City/[facility]/ZIP Co de Phone Number [facility] [address] * Pap Smear (06/07/2021 12:00 AM EST) Swab Ester Muñoz [facility] LAB CYTOLOGY ORDERABLES F inal Result Performing Organization Address [facility]/ZIP Co de Phone Number [address], [place] [address] * HEPATITIS C AB W/REFL TO HCV RNA, QN, PCR (06/02/2021 5:16 PM EST) HEPATITIS C ANTIBODY NON-REACT SHANNAN NON-REACT SHANNAN [facility] INDEX 0.04 <1.00 [facility] Comment: HCV antibody was non-reactive. There is no laboratory evidence of HCV infection. In most cases, no further action is required. However, if recent HCV exposure is suspected, a test for HCV RNA (test code 41980) is suggested. For additional information please refer to http://education.[employer]/faq/EIE08r0 (This link is being provided for informational/ educational purposes only.) 06/02/2021 5:16 PM EST Candykin Hancock [facility] HISTORICAL/NON ORDERABLE LABS Final Result Performing Organization Address [facility] de Phone Number [facility] [address] * HIV 1/2 ANTIGEN/ANTIBODY,FOURTH GENERATION W/RFL (06/02/2021 5:16 PM EST) HIV-1/2 ANTIGEN AND ANTIBODIES, 4TH GENERATION W/ REFLEX NON-REACT SHANNAN NON-REACT SHANNAN [facility] Comment: HIV-1 antigen and HIV-1/HIV-2 antibodies were not detected. There is no laboratory evidence of HIV infection. PLEASE NOTE: This information has been disclosed to you from records whose confidentiality may be protected by state law. If your state requires such protection, then the state law prohibits you from making any further disclosure of the information without the specific written consent of the person to whom it pertains, or as otherwise permitted by law. A general authorization for the release of medical or other information is NOT sufficient for this purpose. For additional information please refer to http://education.[employer]/faq/BFA363 (This link is being provided for informational/ educational purposes only.) The performance of this assay has not been clinically validated in patients less than 2 years old. 06/02/2021 5:16 PM EST Candy Hancock [facility] LAB BLOOD ORDERABLES Final Res ult Performing Organization Address [facility] Co de Phone Number [facility] [address] from Last 3 Months or Most Recently Relevant to Health Maintenance Insurance C3 Care Teams Railroad Purchasing Agent Relationship Specialty Start Date End Date Dary Golden MD [address] [place] [phone] PCP - General Family Medicine 02/07/23
--- OUTSIDE RECORDS SUMMARY | 2025-02-12 18:13 | XMS_ITS | Encounter Summary ---
Author Organization [employer] Address [address] [place] [address] Care Team Providers Care Tool Drawing Checker Name Role Phone Dary Golden MD Primary Care Provider [phone] Encounter Details Date Type Department Care Team (Latest Contact Info) Description 02/11/2025 Travel Social History Tobacco Use Types Packs/Day [...] documented as of this encounter Care Teams Tool Drawing Checker Relationship Specialty Start Date End Date Dary Golden MD [address] [place] [address] PCP - General Family Medicine 02/07/23 documented as of this encounter
--- OUTSIDE RECORDS SUMMARY | 2025-02-12 18:13 | XMS_ITS | Encounter Summary ---
Author Organization [employer] Address [address] [facility] 7 [place] [address] Care Team Providers Care Blood Bank Worker Name Role Phone Alis Ruvalcaba Primary Care Provider Dary Lee MD Primary Care Provider [phone] Reason for Visit * Reason Onset Date Comments Medication Question 05/05/2022 Encounter Details Date Type Department Care Team (Late st Contact Info) Description 05/05/2022 Telephone [facility] MED[facility]INE [address] [place] [id number] Alis Ruvalcaba FNP Medication Question Social History Tobacco Use Types Packs/Day Years Used Date Smoking Tobacco: Never Assessed Comments Unknown Sex and Gender Information Value Date Recorded Sex Assigned at Female 02/28/2022 10:39 AM EDT Legal Sex Female 10:39 AM EDT Gender Identity Female 02/28/2022 10:39 AM EDT Sexual Orientation Straight 02/28/2022 10 :39 AM EDT documented as of this encounter Miscellaneous Notes * Telephone Encounter - Sherman Pham - 05/05/2022 9:07 AM EST Tc from mallorie with [facility] stating [facility] is inquiring a 90 day supply for medication metformin 500 mg Please contact mallorie at [phone] documented in this encounter Plan of Treatment Not on file documented as of this encounter Visit Diagnoses Diagnosis Type 2 diabetes mellitus with hyperglycemia, without long-term current use of insulin (HCC)- Primary documented in this encounter Care Teams Blood Bank Worker Relationship Specialty Start Date End Date Alis Ruvalcaba FNP PCP - General Family Medicine 06/16/21 02/06/23 Dary Golden MD [address] [place] [address] PCP - General Family Medicine 02/07/23 documented as of this encounter
--- OUTSIDE RECORDS SUMMARY | 2025-02-12 18:13 | XMS_ITS | Encounter Summary ---
Author Organization [employer] Address [address] [facility] [address] [place] [address] Care Team Providers Care Vice President Tax Name Role Phone Alis Ruvalcaba Primary Care Provider Dary Lee MD Primary Care Provider [phone] Encounter Details Date Type Department Care Team (Late st Contact Info) Description 10/19/2022 Abstract [facility]ICINE [address] [place] [address] Alis Ruvalcaba FNP Social History Tobacco Use Types Packs/Day Years Used Date Smoking Tobacco: Never Smokeless Tobacco: Never Alcohol Use Standard Drinks/Week Comments Not Currently 0 (1 standard drink = 0.6 oz pur e alcohol) Depression Answer Date Recorded Patient Health Questionnaire-9 Score 7 08/05/2022 Depression Answer Date Recorded Patient Health Questionnaire-2 Score 4 08/05/2022 Comments Unknown Sex and Gender Information Value Date Recorded Sex Assigned at Female 02/28/2022 10:39 AM EDT Legal Sex Female 10:39 AM EDT Gender Identity Female 02/28/2022 10:39 AM EDT Sexual Orientation Straight 02/28/2022 10 :39 AM EDT COVID-19 Exposure Response Date Recorded In the last 10 days, have yo u been in contact with someone who was confirmed or suspected to have Coronavirus/COVID-19? No / Unsure 09/20/2022 6:45 PM EDT documented as of this encounter Plan of Treatment Not on file documented as of this encounter Visit Diagnoses Not on filedocumented in this encounter Additional Health Concerns Assessment Noted Time PHQ-9 Depression Total Score: 7 08/06/19 2:50 PM EDT documented as of this encounter Care Teams Vice President Tax Relationship Specialty Start Date End Date Alis Ruvalcaba FNP PCP - General Family Medicine 06/16/21 02/06/23 Dary Golden MD [address] [place] [id number] PCP - General Family Medicine 02/07/23 documented as of this encounter
--- OUTSIDE RECORDS SUMMARY | 2025-02-12 18:13 | XMS_ITS | Encounter Summary ---
Author Organization [employer] Address [address] [facility] 7t [place] [address] Care Team Providers Care Airline Attendant Name Role Phone Alis Ruvalcaba Primary Care Provider Dary Lee MD Primary Care Provider [phone] Encounter Details Date Type Department Care Team (Late st Contact Info) Description 08/29/2022 Orders Only [facility] MEDICINE [address] [place], [place] [phone] Libertad Pierce ANP [address] [place] [address] Social History Tobacco Use Types Packs/Day Years [...] suspected to have Coronavirus/COVID-19? No / Unsure 08/05/2022 2:24 PM EDT documented as of this encounter Plan of Treatment Not on file documented as of this encounter Visit Diagnoses Not on filedocumented in this encounter Additional Health Concerns Assessment Noted Time PHQ-9 Depression Total Score: 7 08/06/19 23 2:50 PM EDT documented as of this encounter Care Teams Airline Attendant Relationship Specialty Start Date End Date Alis Ruvalcaba FNP PCP - General Family Medicine 06/16/21 02/06/23 Dary Golden MD [address] [place] [address] PCP - General Family Medicine 02/07/23 documented as of this encounter
--- OUTSIDE RECORDS SUMMARY | 2025-02-12 18:13 | XMS_ITS | Encounter Summary ---
Author Organization [employer] Address [address] [facility] [address]t [place] [address] Care Team Providers Care Spider Assembler Name Role Phone Dary Golden MD Primary Care Provider [phone] Reason for Visit * Reason Onset Date Comments Med Refill 02/10/2025 Encounter Details Date Type Department Care Team ([facility] st Contact Info) Description 02/10/2025 Refill [facility] MEDICINE [address] [place] [address] Dary Golden MD [address] [place] [address] Social History Tobacco Use Types Packs/Day Years [...] encounter Miscellaneous Notes * Telephone Encounter - Luci Taylor LPN - 02/10/2025 1:02 PM EDT Last seen 08.23.24 . * Telephone Encounter - Toñito Andres - 02/10/2025 1:00 PM EDT TC from pt requesting medication refill. Medications needing refill : Dulaglutide (Trulicity) 1.5 MG/0.5ML solution auto-injector To be sent to: [id number] - [address] . documented in this encounter Plan of Treatment Not on file documented as of this encounter Visit Diagnoses Not on filedocumented in this encounter Additional Health Concerns Assessment Noted Time PHQ-9 Depression Total Score: 8 08/24/19 25 4:17 PM EDT documented as of this encounter Care Teams Spider Assembler Relationship Specialty Start Date End Date Dary Golden MD [address] [place] [id number] PCP - General Family Medicine 02/07/23 documented as of this encounter
== END 2025-02-12 14:31 | disposition home or self-care (01) ==
LOC: HO.HHCL 14:30
PROVIDERS: PCP General Practice; Visit Provider General Practice
DX: E11.65 Type 2 diabetes mellitus with hyperglycemia (principal)
CPT/HCPCS: 36415; 80053; 80061; 82043; 82570